=== PATIENT | male | born 1955 | race Caucasian/White ===

== ENCOUNTER → 2021-06-06 13:03 | Outpatient (BNVA) | payer OTHER, SELFPAY | PROVIDERS: PCP Hospitalist; Visit Provider Physician Assistant Medical | DX: S69.91XA Unspecified injury of right wrist, hand and finger(s), initial encounter (principal); X58.XXXA Exposure to other specified factors, initial encounter | CPT/HCPCS: 99203 ==

== ENCOUNTER → 2021-06-11 15:43 | Outpatient (BNVA) | payer OTHER, SELFPAY | PROVIDERS: PCP Nurse Practitioner Family; Visit Provider Internal Medicine | DX: S60.221A Contusion of right hand, initial encounter (principal); X58.XXXA Exposure to other specified factors, initial encounter | CPT/HCPCS: 99213 ==

== ENCOUNTER 2021-06-13 07:25 | Outpatient (RCR) | payer OTHER, SELFPAY ==
--- NOTE | 2021-06-13 08:22 | MHC.OT.OEV ---
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 It swelled up with pain, but returned to to normal. He re-injured it last week and was seen at urgent care and then [facility] X-ray (-) for acute fracture. 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 summer Working on renovating his rental home Living Situation, Family and/or Social Support: Lives w/ Current Level of Function and Occupation Self Care, Employment, Leisure: Difficulty w/ forceful registry np (pliers, nail-gun) Sleep: Driving: Now improved Vision: Balance: Pain Assessment Pain Score: 1 Pain Scale Used: Numeric (0 - 10) Pain Location and Description: Right D3, localized to DIP primarily 1/10 resting pain 3/10 after a day's work Aggravating Factors: Forceful gripping Alleviating Factors: [place], Tylenol, Ibuprophen Skin and Soft Tissue Assessment Skin and Soft Tissue: Comments: Nerve assessment Ulnar Nerve: Median Nerve: Radial Nerve: Comments: WNL Sensory Assessment Temperature: Light Touch: Proprioception: Vibration: Comments: WNL Edema Assessment Upper Extremity: Lower Extremity: Comments: Mild edema in right D3 Dexterity Assessment Dexterity: Comments: WNL Special Tests Comments: AROM(PROM) Strength Cervical Cervical Flexion: Cervical Extension: Cervical Lateral Flexion: Cervical Rotation: Comments: Shoulder Flexion: Extension: Abduction: Internal Rotation: External Rotation: Comments: WFL Flexion: Extension: Abduction: Internal Rotation: External Rotation: Comments: Elbow Flexion: Extension: Pronation: Supination: Comments: WFL Flexion: Extension: Pronation: Supination: Comments: Wrist Flexion: Extension: Ulnar Deviation: Radial Deviation: Comments: WFL Flexion: Extension: Ulnar Deviation: Radial Deviation: Comments: Thumb Thumb CMC Flexion: Thumb MCP Flexion: Thumb IP Flexion: Radial Abduction: Palmar Abduction: [place] (Kapandji 0-10): Comments: WFL Digits Index MCP: PIP: DIP: Long MCP: PIP: DIP: Ring MCP: PIP: DIP: Small MCP: PIP: DIP: Comments: Right D3 tip-palm, about 1 cm to DPC Gross Grasp: R 35lb L 70lb Lateral Pinch: Two-Point Pinch: Three-Jaw Ubaldo: Comments: Guarding right registry np Patient Education Primary Language: Italian Help Desk Support Required: No Current Knowledge: Understands information with skills for self-management Teaching Method: Demonstration Handouts Verbal Education Needs Identified on Evaluation: ADL's Disease Information Equipment Use Exercise Pain Safety How did patient/family demonstrate learning? Patient demonstrates Patient verbalizes Barriers to Learning: None Readiness for Learning: Accepting Who was educated? Patient Comments: Plan of Care Assessment: 65 yo male presents about three weeks after initial injury to right middle finger when using a vice clamp at work. He has had improvements in his swelling, range and pain, currently now with minimal limitations and has returned to full work duties. Assessment shows impaired gross grasp, and slightly decreased middle finger end range. He has been educated on home exercise program and given techniques for pain and edema management. I anticipate he will do well with self management techniques and will not need any further OT at this time. STG Duration: Short Term Goals: LTG Duration: Machine Loader Goals: Frequency and Duration: The patient will be seen Treatment Plan: D/C OT services Electronically Signed By: Jenna Dominguez OTR/[place] CHT Reviewed/agree with student documentation: Therapist: Please sign and return to therapist, Thank you for your referral.
--- NOTE | 2021-06-13 08:22 | MHC.OT.DC ---
[address] [phone] F: [phone] Occupational Therapy Discharge Note Provider: Diamond Diaz PA-C Diagnosis: Right D3 injury Date of Evaluation: 06/13/21 Date of Discharge: 06/13/21 Treatments to Date: 1 Discharge Status: Independent with HEP Insurance Declined Tx Discharge Summary: Shan was seen for initial OT evaluation and is doing quite well. He has been educated on techniques for self management of pain, edema, range and strength and will continue with a home program, no outpatient services needed at this time. Electronically Signed By: DANTE Arevalo/[place] CHT Reviewed/agree with student documentation: Therapist: Please Sign and return to therapist, thank you for your referral.
== END 2021-06-13 08:23 | disposition home or self-care (01) ==
LOC: HO.OT 07:25
PROVIDERS: PCP Nurse Practitioner Family; Visit Provider Physician Assistant Medical
DX: S69.91XD Unspecified injury of right wrist, hand and finger(s), subsequent encounter (principal); R60.0 Localized edema
CPT/HCPCS: 97110; 97165

== ENCOUNTER → 2021-06-28 07:55 | Outpatient (BNVA) | payer OTHER, SELFPAY | PROVIDERS: PCP Nurse Practitioner Family; Visit Provider Internal Medicine | DX: S60.031D Contusion of right middle finger without damage to nail, subsequent encounter (principal); X58.XXXD Exposure to other specified factors, subsequent encounter | CPT/HCPCS: 99213 ==

== ENCOUNTER 2024-11-03 09:33 | Inpatient (IN) | payer MEDICARE, SELFPAY ==
--- OUTSIDE RECORDS SUMMARY | 2021-06-05 16:24 | XMS_ITS | Encounter Summary ---
Author Organization [facility] Address [address] [address] Phone Care Team Providers Care Grey Percher Name Role Phone Katy Dumont MD Unavailable + Mayelin Kirkland NP Primary Care Provid er Encounter Details Date Type Department Care Team (Late st Contact Info) Description 06/05/2021 4:24 PM EDT Hospital Encounter [facility] [address] [place] [id number] Sulaiman France PA [address] [place] [phone] [email or web address] Social History Tobacco Use Types Packs/Day Years Used Date Smoking Tobacco: Every Day Smokeless Tobacco: Never Alcohol Use Standard Drinks/Week Comments Yes 5 (1 standard drink = 0.6 oz pur e alcohol) Education Answer Date Recorded Are you interested in more education? Not on bert e 06/19/2022 Are you concerned about learning? Not on file 06/19/2022 No 06/19/2022 No 06/19/2022 Digital Access Answer Date Recorded No 07/15/2022 No 07/15/2022 Reliable internet access at home? Not on file 07/15/2022 Device with a working camera? Not on file Intimate Partner Violence Answer Date R ecorded Are you denied basic needs s uch as food, clothing, or medical care? No 07/14/2022 In the past 12 months have y ou been in a relationship with a person who hurts, threatens, or tries to control you? No 07/14/2022 Are you denied basic needs s uch as food, clothing, or medical care? No 07/14/2022 In the past 12 months have y ou been in a relationship with a person who hurts, threatens, or tries to control you? No 07/14/2022 Sex and Gender Information Value Date Recorded Sex Assigned at Male 02/24/2023 9:32 AM EST Legal Sex Male 9:53 PM EDT Gender Identity Male 02/24/2023 9:32 AM EST Sexual Orientation Asexual 02/24/2023 9: 32 AM EST documented as of this encounter Functional Status * Calculated C-SSRS Risk Score (Lifetime/Recent) Answer Date of Assessment Author No Risk Indicated 07/14/2022 7:16 PM EDT Felicitas Flores RN * Thomas Suicide Severity Rating Scale (Screener/Recent Self-Report) Question Answer Date of Assessment Author 1. Wish to be (Past 1 Month) No 023 7:16 PM EDT Felicitas Flores RN 2. Non-Specific Active Suici zulema Thoughts (Past 1 Month) No 07/14/2022 7:16 PM EDT Hoa Flores RN 6. Suicidal Behavior (Lifetime) No 3 7:16 PM EDT Felicitas Flores RN documented as of this encounter Plan of Treatment Upcoming Encounters Date Type Department Care Team (Late st Contact Info) Description 06/28/2025 9:20 AM EDT Office Visit [facility] [address] [place] [address] [address]rd Floor, [address] [place] [address] Adolfo Matthews MD [address] [place] [address], [address] [place] [id number] [email or web address] documented as of this encounter Procedures Procedure Name Priority Date/Time Associated Diagnosis Comments XR FINGER 2 OR MORE VIEWS (RIGHT) Urgent/patient waiting 06/05/2021 4:30 PM EDT Swelling of right middle finger documented in this encounter Results * XR FINGER 2 OR MORE VIEWS (RIGHT) (06/05/2021 4:30 PM EDT) Anatomical Region Laterality Modality Hand Right Computed Radiogr aphy 06/05/2021 4:37 PM EDT Impressions 06/05/2021 5:04 PM EDT No fracture or dislocation. ATTESTATION: Primo Steiner as teaching physician, have reviewed the images for this case and if necessary edited the report originally created by Gerardo Siegel. Narrative 06/05/2021 5:04 PM EDT XR FINGER 2 OR MORE VIEWS (RIGHT) COMPARISON: None FINDINGS: No fracture. Normal alignment. Normal joint spaces. Mild soft tissue swelling along the palmar surface of the middle finger. Vascular calcifications. Procedure Note Primo Santana, DO - 06/05/2021 XR FINGER 2 OR MORE VIEWS (RIGHT) COMPARISON: None FINDINGS: No fracture. Normal alignment. Normal joint spaces. Mild soft tissueswelling along the palmar surface of the middle finger. Vascularcalcifications. IMPRESSION: No fracture or dislocation. ATTESTATION: Primo Steiner as teaching physician, have reviewed theimages for this case and if necessary edited the report originally createdby Gerardo Siegel. Sulaiman MURGUIA IMG XR UPPER EXTREMITY Tawanna l Result documented in this encounter Visit Diagnoses Not on filedocumented in this encounter Additional Health Concerns Infection Onset Date Last Indicated Resolved Time MRSA Comment:Infection Loaded by the Load Infection Utility 03/26/2014 03/26/2014 04/09/2022 1:[address] documented as of this encounter Care Teams Grey Percher Relationship Specialty Start Date End Date Mayelin Kirkland NP [address] [place] [phone] [email or web address] PCP - General Family Medicine 06/05/21 Katy Dumont MD [email or web address] Family Medicine 01/11/19 documented as of this encounter Additional Source Comments The information contained in this document represents components of the legal health record. It is not the complete legal health record.[facility]
[2024-11-03] VITALS (7 sets, daily range): BP systolic 134–160; BP diastolic 56–77; PULSE 58–76; RESP 15–18; TEMP 36.3–37.1; O2SAT 96–97; BMI 22.0; BMI 22.2
--- NOTE | ~2024-11-03 | XR_ITS ---
EXAMINATION: XR CHEST 1 VIEW CLINICAL INFORMATION: chest pressure COMPARISON: None available. TECHNIQUE: Frontal view of the chest was obtained. FINDINGS: Lungs: Small area of ill-defined opacity in the right lower lobe. Left lung appears clear. Pleura: No pneumothorax. Blunting of bilateral costophrenic angles may be due to trace bilateral pleural effusions, focal atelectasis or focal pleural thickening. Heart/Mediastinum: Normal cardiomediastinal silhouette. Bones: No acute findings. XR/XR chest 1V IMPRESSION: Small area of ill-defined opacity in the right lower lobe could represent early airspace disease in the appropriate clinical setting. Electronically signed by: Ron Coelho MD 11/03/2024 10:45 AM EDT
--- NOTE | 2024-11-03 09:35 | ECG_ITS ---
Test Reason : cp Blood Pressure : */* mmHG Vent. Rate : 74 BPM Atrial Rate : 74 BPM P-R Int : 132 ms QRS Dur : 90 ms QT Int : 366 ms P-R-T Axes : 71 33 46 degrees QTcB Int : 406 ms Sinus rhythm with Premature atrial complexes Minimal voltage criteria for LVH, may be normal variant ( Sokolow-Blakely ) Septal infarct , age undetermined Abnormal ECG No previous ECGs available Referred By: Generic ED Physician Electronically Signed By: PARESH TURNER MD
[2024-11-03 10:03] LABS: MANUAL DIFF FLAG NO
[2024-11-03 10:06] LABS: Hematocrit 39.8 % (42.0-52.0); Hemoglobin 14.0 g/dl (14.0-18.0); Imm Gran Abs Auto 0.02 X10*3/uL (0.00-0.03); Imm Gran Pct Auto 0.3 % (0.0-0.4); Lymphocytes Absolute Auto 1.3 X10*3/uL (1.2-4.9); Mean Corpuscular HGB Conc 35.2 g/dl (31.0-36.0); Mean Corpuscular Hemoglobin 32.8 pg (27.0-33.0); Mean Corpuscular Volume 93.2 fL (80.0-98.0); NRBC Abs Auto 0.000 X10*3/uL (0.0-0.012); NRBC Pct Auto 0.0 /100WBC (0.0-0.2); Platelet Count 255 X10*3/uL (160-400); Red Blood Count 4.27 X10*6/uL (4.60-5.80); White Blood Count 6.3 X10*3/uL (4.8-10.8)
[2024-11-03 10:22] LABS: Alanine Aminotransferase 24 U/L (0-40); Albumin Level 4.2 g/dL (3.5-5.0); Alkaline Phosphatase 73 U/L (39-117); Anion Gap 13 (12-20); Aspartate Amino Transferase 27 U/L (5-37); Blood Urea Nitrogen 20 mg/dL (9-16); Calcium 9.4 mg/dL (8.4-10.2); Carbon Dioxide 27 mmol/L (22-29); Chloride 103 mmol/L (96-108); Creatinine Clr Calc Pharmacy 53.0; Estimated Glomerular Filt Rate 58; Potassium 4.6 mmol/L (3.3-5.1); Sodium 138 mmol/L (135-145); Total Protein 7.1 g/dL (6.5-8.0)
[2024-11-03 10:29] LABS: Troponin-I High Sensitivity 65.2 ng/L (<3.5-35.0)
--- NOTE | 2024-11-03 11:55 | ECG_ITS ---
Test Reason : CHEST PAIN Blood Pressure : */* mmHG Vent. Rate : 63 BPM Atrial Rate : 63 BPM P-R Int : 148 ms QRS Dur : 86 ms QT Int : 396 ms P-R-T Axes : 34 30 37 degrees QTcB Int : 405 ms Normal sinus rhythm Minimal voltage criteria for LVH, may be normal variant ( Sokolow-Blakely ) Borderline ECG When compared with ECG of 03-Nov-2024 09:53, Premature atrial complexes are no longer Present Referred By: Ion Hoff Electronically Signed By: PARESH TURNER MD
--- NOTE | 2024-11-03 11:58 | ED.CHESTPAIN ---
HPI - Chest Pain General Chief Complaint: Chest Pain Stated Complaint: chest pressure Time Seen by Provider: 11/03/24 11:47 Source: patient Mode of arrival: ambulatory Limitations: no limitations History of Present Illness HPI narrative: This is 69 years old man with a history of CAD he had right coronary stent and circumflex stent on aspirin and Plavix presented to the ED with a chief complaint of chest pain the chest pain he has been ongoing for a couple of days no radiation of the pain pain is now constant complaint: chest pain Pertinent past history: coronary artery disease Onset (ago): day(s) (2) Timing of current episode: constant Onset: during rest Pain location: substernal Pain radiation: none Severity: mild Quality: aching Relieving factors: nothing Exacerbating factors: nothing Risk Factors Coronary artery disease risk factors: diabetes Thoracic aortic dissection risk factors: none Related Data Allergies Allergy/AdvReac Type Severity Reaction Status Date / Time codeine Allergy Unknown Unknown Verified 11/03/24 09:46 Review of Systems Constitutional: Constitutional: Reports no additional constitutional complaints Cardiovascular: Cardiovascular: Reports as per [facility] Past Medical History Attestation statement: The following information was validated with the patient. Source: unable to obtain Social History Social History Advance Directives: No Advance Directives Information Provided: Yes Physical Exam Exam: Exam: Patient looks well no distress comfortable in the stretcher Vital Signs: Vital Signs: Last Vital Signs Pulse 62 11/03/24 12:00 Resp 16 11/03/24 12:00 BP 141/68 H 11/03/24 12:00 Pulse Ox 97 11/03/24 12:00 O2 Del Method Room Air 11/03/24 12:00 BMI result Body Mass Index 22.2 Const: General: cooperative Orientation/consciousness: patient oriented x3 HEENT: Head: Yes normal to inspection General nose exam: Normal external nose present Face and sinus: Yes normal facial exam Mouth: Normal oral and palatal mucosa present Neck: Neck: Yes normal visual inspection Resp: Effort & Inspection: normal respiratory effort Auscultation: clear to auscultation bilaterally Cardio: Jugular venous distension: no JVD Rate: regular rate Rhythm: regular rhythm GI: Inspection: Yes normal to inspection Skin: General skin exam: no rashes or lesions noted Neuro: General: patient oriented x3 Extrem: General: Yes normal to inspection Course Reevaluation(s) Reevaluation #1: I have discussed the case with the ruling technician we will admit IV heparin Time: 14:33 Medications Administered Generic Name Dose Route Start Last Admin Trade Name Freq PRN Reason Stop Dose Admin Heparin Sodium/Sodium Chloride 25,000 unit in 250 mls @ 0 mls/hr 11/03/24 13:15 11/03/24 13:15 Heparin Sodium,Porcine/1/2ns IVCONT 12 units/kg/hr .Q0M LORNE 7.93 mls/hr Protocol Administration Per Protocol Nitroglycerin 0.4 mg 11/03/24 12:19 11/03/24 12:31 Nitroglycerin 0.4 Mg Tab.Subl SUBLINGUAL 0.4 mg Q5MX3 PRN Administration Chest Pain Discontinued Medications Generic Name Dose Route Start Last Admin Trade Name Freq PRN Reason Stop Dose Admin Heparin Sodium (Porcine) 3,900 unit 11/03/24 12:25 11/03/24 13:10 Heparin Sodium,Porcine 5,000 Unit/Ml Vial 60 unit/kg (3900 unit) 11/03/24 12:26 3,900 unit IVPUSH Administration ONCE ONE Medical Decision Making Medical Decision Making [facility] Narrative: Patient presented with chest pain history of CAD we will obtain EKG and high sensitive troponin Chest pain-free after nitro, IV heparin started spoke with cardiology and hospitalist Differential Diagnosis Differential Diagnoses: The differential diagnosis associated with the presentation includes ACS/pericarditis/atypical chest pain Admission/Observation Consideration of admission/observation: Escalation of care including admission/observation considered Consult Healthcare Provider Management of the patient was discussed with: [employer] Manual [employer] Therapist Dr Ley Lab Data [facility] Lab Attestation statement: I reviewed the patient's lab results. 11/03/24 09:58 11/03/24 09:58 Labs: Lab Results 11/03/24 11/03/24 11/03/24 Range/Units 09:58 13:17 13:18 WBC 6.3 (4.8-10.8) X10*3/uL RBC 4.27 L (4.60-5.80) X10*6/uL Hgb 14.0 (14.0-18.0) g/dl Hct 39.8 L (42.0-52.0) % MCV 93.2 (80.0-98.0) fL MCH 32.8 (27.0-33.0) pg MCHC 35.2 (31.0-36.0) g/dl RDW 12.7 (11.0-16.0) % Plt Count 255 (160-400) X10*3/uL MPV 9.3 L (9.4-12.4) fL Immature Gran % (Auto) 0.3 (0.0-0.4) % Neut % (Auto) 64.8 (45-73) % Lymph % (Auto) 20.3 (20-40) % [place] % (Auto) 8.1 (2-11) % Eos % (Auto) 5.1 H (0-4) % Baso % (Auto) 1.4 (0-2) % Lymph # (Auto) 1.3 (1.2-4.9) X10*3/uL [place] # (Auto) 0.5 (0.1-1.2) X10*3/uL Eos # (Auto) 0.3 (0.0-0.4) X10*3/uL Baso # (Auto) 0.1 (0.0-0.2) X10*3/uL Abs Immat Gran (auto) 0.02 (0.00-0.03) X10*3/uL Absolute Neuts (auto) 4.1 (2.0-8.3) x10*3/uL Absolute Nucleated RBC 0.000 (0.0-0.012) X10*3/uL Nucleated RBC % (auto) 0.0 (0.0-0.2) /100WBC PT 9.9 L (10.9-12.4) SEC INR 0.9 (0.9-1.1) aPTT Heparin Protocol 31.1 L (53-77.9) SEC Sodium 138 (135-145) mmol/L Potassium 4.6 (3.3-5.1) mmol/L Chloride 103 (96-108) mmol/L Carbon Dioxide 27 (22-29) mmol/L Anion Gap 13 (12-20) BUN 20 H (9-16) mg/dL Creatinine 1.24 (0.5-1.4) mg/dL Estim Creat Clear Calc 53.0 Estimated GFR 58 Random Glucose 208 H (60-115) mg/dL Calcium 9.4 (8.4-10.2) mg/dL Total Bilirubin 0.4 (0.0-1.0) mg/dL AST 27 (5-37) U/L ALT 24 (0-40) U/L Alkaline Phosphatase 73 (39-117) U/L Troponin I High Sens 65.2 H 60.4 H (<3.5-35.0) ng/L Total Protein 7.1 (6.5-8.0) g/dL Albumin 4.2 (3.5-5.0) g/dL Independent Interpretation I performed an independent interpretation of an: EKG Interpretation: Electrocardiogram reviewed interpreted by me as normal sinus rhythm borderline ST elevation in the lateral leads without reciprocal changes Radiology Impression Discussion of test interpretation with radiology: I have reviewed the radiologist's reading. Chronic Conditions Patient?s care impacted by: Diabetes Critical Care Time Critical Care Time Critical Care Time: Yes Total Critical Care Time: 60 Attestation: iv heparin Discharge Plan Discharge Clinical Impression: ACS (acute coronary syndrome) Chest pain Qualifiers: Chest pain type: unspecified Qualified Code(s): R07.9 - Chest pain, unspecified Patient Disposition: Admitted As Inpatient
[2024-11-03] MEDS: Heparin Sodium,Porcine/1/2NS 25,000 UNIT/250 ML IV.SOLN 7.93 UNIT IVCONT (13:15)
[2024-11-03 13:39] LABS: INTERNATIONAL NORM RATIO 0.9 (0.9-1.1); Prothrombin Time 9.9 SEC (10.9-12.4)
[2024-11-03 13:41] LABS: PTT Heparin Drip 31.1 SEC (53-77.9)
[2024-11-03 13:46] LABS: Troponin-I High Sensitivity 60.4 ng/L (<3.5-35.0)
--- NOTE | 2024-11-03 14:29 | PM.IMHP ---
History of Present Illness Date of Service: 11/03/24 Attending physician on admission: Artie Durham Chief Complaint: chest pain This is a 61-year-old male with history of coronary artery disease, type 1 diabetes, peripheral vascular disease who presents to the emergency department with chest pain. Patient reports central chest pressure intermittent over the past 10 days. Over the past 3 days has become more constant in nature. There is no radiation. There is no associated symptoms specifically no shortness of breath, dizziness, diaphoresis, nausea or vomiting. The pain is not worse with activity. He received a dose of nitro in the emergency department which possibly reduce the pain a little bit according to the patient. ekg was non-ischemic. troponin was checked and initially was 65, on repeat 60. Given underlying coronary artery disease, concern for unstable angina, was started on heparin drip and will be admitted to the hospital for further management. Review of Systems Review of Systems: Yes all other systems are reviewed and are negative Constitutional: Constitutional: Denies chills and Denies fever(s) Cardiovascular: Cardiovascular: Reports chest pain, Denies palpitations and Denies dyspnea Respiratory: Respiratory: Denies cough and Denies dyspnea Gastrointestinal: Gastrointestinal: Denies abdominal pain and Denies vomiting Endocrine: Endocrine: Denies palpitations [facility] Medical History Tobacco dependence Hypothyroid Type 1 diabetes PVD (peripheral vascular disease) CAD (coronary artery disease) Functional capacity: independent ambulation Social History (Updated 11/03/24 @ 14:36 by BLADE Arguelles) Patient Tobacco Use Status: Current someday Tobacco user Tobacco use type: Cigarette Advance Directives: No Advance Directives Information Provided: Yes Meds Allergies Allergy/AdvReac Type Severity Reaction Status Date / Time codeine Allergy Unknown Unknown Verified 11/03/24 09:46 Active Medications: Current Medications Heparin Sodium (Porcine) (Heparin Sodium,Porcine 5,000 Unit/Ml Vial) 2,600 unit 40 unit/kg (2600 unit) IVPUSH PROTOCOL BOLUS PRN; Protocol PRN Reason: 40 unit/kg - Heparin Protocol Heparin Sodium (Porcine) (Heparin Sodium,Porcine 5,000 Unit/Ml Vial) 5,300 unit 80 unit/kg (5300 unit) IVPUSH PROTOCOL BOLUS PRN; Protocol PRN Reason: 80 unit/kg - Heparin Protocol Heparin Sodium/Sodium Chloride (Heparin Sodium,Porcine/1/2ns) 25,000 unit in 250 mls @ 0 mls/hr IVCONT .Q0M LORNE; Protocol Last Admin: 11/03/24 13:15 Dose: 12 units/kg/hr, 7.93 mls/hr Nitroglycerin (Nitroglycerin 0.4 Mg Tab.Subl) 0.4 mg SUBLINGUAL Q5MX3 PRN PRN Reason: Chest Pain Last Admin: 11/03/24 12:31 Dose: 0.4 mg Home Medications ?Medication ?Instructions ?Recorded ?Confirmed ?Last Taken ?Type amlodipine 10 mg tablet 10 mg PO DAILY 11/03/24 11/03/24 11/03/24 History atorvastatin 80 mg tablet 80 mg PO DAILY 11/03/24 11/03/24 11/03/24 History blood-glucose transmitter (Dexcom 11/03/24 11/03/24 Unknown History G6 Transmitter device) clopidogrel 75 mg tablet 75 mg PO DAILY 11/03/24 11/03/24 11/03/24 History gabapentin 300 mg capsule 300 mg PO BID 11/03/24 11/03/24 11/03/24 History gabapentin 300 mg capsule 300 mg PO DAILY PRN Pain 11/03/24 11/03/24 Unknown History insulin degludec 100 unit/mL (3 See Rx Instructions .Route 11/03/24 11/03/24 11/03/24 History mL) subcutaneous pen (Tresiba .COMPLEX PRN when pump fails FlexTouch U-100 insulin) insulin lispro 100 unit/mL 0 - 67 unit subcut DAILY 11/03/24 11/03/24 11/03/24 History subcutaneous solution (Humalog U-100 Insulin) insulin pump cart,auto,BT,G6/7 11/03/24 11/03/24 Unknown History (Omnipod 5 G6-G7 Pods (Gen 5) subcutaneous cartridge) levothyroxine 125 mcg tablet 125 mcg PO BEDTIME 11/03/24 11/03/24 11/03/24 History (Synthroid) Physical Exam Vital Signs and Narrative: Vital Signs: Last Vital Signs Pulse 62 11/03/24 12:00 Resp 16 11/03/24 12:00 BP 141/68 H 11/03/24 12:00 Pulse Ox 97 11/03/24 12:00 O2 Del Method Room Air 11/03/24 12:00 BMI result Body Mass Index 22.2 Const: General: cooperative, comfortable, no acute distress, alert and awake Nutritional Appearance: average body habitus Orientation/consciousness: patient oriented x3 Resp: Effort & Inspection: normal respiratory effort, able to speak in complete sentences, no respiratory distress and no use of accessory muscles Cardio: Rate: regular rate GI: Inspection: No distended Palpation (GI): Soft to palpation and nontender Neuro: General: patient oriented x3, moves all extremities and CN's II-XI intact bilaterally Results Labs 11/03/24 09:58 11/03/24 09:58 Labs: Laboratory Results - last 24 hr 11/03/24 11/03/24 09:58 13:17 MCV 93.2 MCH 32.8 MCHC 35.2 RDW 12.7 Plt Count 255 MPV 9.3 L Immature Gran % (Auto) 0.3 Neut % (Auto) 64.8 Lymph % (Auto) 20.3 [place] % (Auto) 8.1 Eos % (Auto) 5.1 H Baso % (Auto) 1.4 Lymph # (Auto) 1.3 [place] # (Auto) 0.5 Eos # (Auto) 0.3 Baso # (Auto) 0.1 Abs Immat Gran (auto) 0.02 Absolute Neuts (auto) 4.1 Absolute Nucleated RBC 0.000 Nucleated RBC % (auto) 0.0 PT 9.9 L INR 0.9 aPTT Heparin Protocol 31.1 L Anion Gap 13 Estim Creat Clear Calc 53.0 Estimated GFR 58 Random Glucose 208 H Calcium 9.4 Total Bilirubin 0.4 AST 27 ALT 24 Alkaline Phosphatase 73 Total Protein 7.1 Albumin 4.2 Imaging Radiologist's Impressions: Impressions Chest X-Ray 11/03/24 10:35 IMPRESSION: Small area of ill-defined opacity in the right lower lobe could represent early airspace disease in the appropriate clinical setting. Electronically signed by: Ron Coelho MD 11/03/2024 10:45 AM EDT Assessment and Plan (1) Chest pain: Qualifiers: Chest pain type: unspecified Qualified Code(s): R07.9 - Chest pain, unspecified Status: Acute Plan This is a 69-year-old male with history of CAD s/p stent x2, PVD s/p stent of right common iliac artery, T1DM, hypothyroidism, tobacco dependence who presents to the emergency department with chest pain Chest pain/unstable angina trops flat. chest pain improved continue Heparin drip continue plavix (took dose this am), statin; not on BB at this time Echocardiogram cardiology consult T1DM uses omnipod insulin pump with dexcom CGM - will continue to use insulin pump follow POCs HTN continue norvasc Hypothyroidism Continue Synthroid dvt ppx - heparin drip patient will likely require two midnight stay in the hospital for management of unstable angina requiring specialist evaluation and IV heparin Quality Stroke Does the patient have a stroke diagnosis?: No VTE Prior VTE?: No VTE Risk Level:: Medical - moderate - high VTE Device Contraindication: Treatment Not Indicated VTE Drug Contraindication: N/A - Med Ordered
--- NOTE | 2024-11-03 14:31 | CA_ITS ---
Transthoracic Echocardiogram Patient (Last, First, Middle): Shan Drake J Gender: Male Date of : 1955 Age: 69 Procedure Date: 11/03/2024 Procedure Type: Transthoracic Echocardiogram Location: ER Height: 172.72 cm Weight: 65.77 kg BSA: 1.78 m2 Heart Rate: bpm BP: 135 / 56 mmHg Taper [employer]ed Circuit Layout: TO/RC Referring MD: Kaleigh MURGUIA Boring Machine Operator Horizontal: Haja Alex MD Symptoms: chest pain Study Quality: Adequate ECG Rhythm: Sinus Conclusions: - 1. Normal LV ejection fraction of 60 65% with impaired relaxation filling pattern with suggestion of basal inferior and inferoseptal wall motion abnormality 2. Normal cardiac valvular Dopplers 3. Normal RV systolic pressure 4. No gross pericardial effusion Findings Left Ventricle Normal left ventricular size, thickness, and systolic function. The visually estimated ejection fraction is between 60-65%. Spectral Doppler is indicative of an impaired relaxation filling pattern. E/E prime ratio is between 8 and 15 consistent with indeterminate filling pressures. Wall Motion Rest Echo Findings The basal inferior and basal inferoseptal segments are hypokinetic. All other scored wall segments showed normal motion. Right Ventricle Normal right ventricular cavity size and systolic function. Atria Both atria are normal in size. There is no evidence of interatrial shunt. Aortic Valve There is no aortic valve stenosis. There is no aortic valve regurgitation. Mitral Valve There is mild anterior and posterior mitral leaflet thickening. There is trace mitral valve regurgitation. There is no mitral valve stenosis. Pulmonic Valve The pulmonic valve was not well visualized. Tricuspid Valve Likely normal tricuspid valve structure and function. There is trace tricuspid valve regurgitation. The right ventricular systolic pressure is normal. The right ventricular systolic pressure is 15 mmHg. Normal right atrial pressure. There is no evidence of pulmonary hypertension. Great Vessels The aorta was not well visualized. The pulmonary artery was not well visualized. Venous The inferior vena cava is normal in size and collapses greater than 50% with inspiration. Pericardium/Pleural There is no evidence of pericardial effusion. Prior Study Comparison No prior study available for comparison. Measurements 2D Linear Measurements IVSd: 0.92 0.6-0.9/0.6-1.0 cm LVIDd: 4.28 3.9-5.3/4.2-5.9 cm LVIDd Index: 2.40 2.4-3.2/2.2-3.1 cm/m2 LVIDs: 2.90 2.0-3.6 cm LVPWd: 0.84 0.7-1.1 cm Ao Root: 3.20 2.1-3.5 cm LA Diam: 2.80 2.7-3.8/3.0-4.0 cm LAIDs Index: 1.57 1.5-2.3 cm/m2 LV Mass: 148.42 67-162/88-224 g LV Mass Index: 83.38 43-95/49-115 g/m2 LVOT Diam: 2.10 3.0+(-)1.3 cm 2D Systolic Function EF 4C: 61.80 >55% EF 2C: 62.50 >55% EF BiP: 63.10 >55% Mitral Valve MV Pk E: 0.66 MV PK A: 0.79 MV Decel Time: 312.00 E/A: 0.80 E'Lateral: 9.90 E'Medial: 5.98 E/E' Med: 11.00 E/E' Lat: 6.70 PHT: 92.00 MVA PHT: 2.39 Decel [place]: 2.11 Aortic Valve AoV Pk Pablo: 1.22 AoV Mn Pablo: 0.86 AoV VTI: 0.26 AoV Pk Grad: 6.00 Aov Mn Grad: 3.00 CHAD Cont.VTI: 3.18 LVOT LVOT Pk Pablo: 1.12 LVOT Mn Pablo: 0.70 LVOT VTI: 0.24 LVOT Pk Grad: 5.00 LVOT Mn Grad: 2.00 LVOT Diam: 2.10 LVOT Area: 3.46 Diastolic Function MV Pk E: 0.66 MV Pk A: 0.79 E/A: 0.80 E'Medial: 5.98 E/E' Med: 11.00 E' Laterial: 9.90 E/E' Lat: 6.70 Right Ventricle TAPSE (mm): 24.60 TVS' Pablo: 11.60 Tricuspid Valve TR Pk Pablo: 1.70 TR Pk Grad: 12.00 RA Press: 3.00 RVSP: 15.00 Great Vessels Aorta Ao Root-2D: 3.20 2.0-3.7 cm Sinus of Valsalva: 3.20 2.0-3.5 cm Pulmonary Valve PV Pk Pablo: 0.88 Peak PV Grad: 3.00 Updated in Other Vendor System with Status of Final Haja Alex MD electronically signed on 11/03/2024 4:13:29 PM with status of Final
--- NOTE | 2024-11-03 16:51 | PHA.MEDREC ---
Addendum entered by Nathaniel James PharmD 11/03/24 16:55: reviewed Original Note: Pharmacy Consult ? Medication Reconciliation Pharmacy has completed the medication reconciliation. Pharmacy has completed the medication reconciliation. Patient was able to name all of his medications. Patient states he is not using Mometasone 0.1% oint. Patient confirmed he has a Omnipod 5 Gen DX pod insulin pump and uses Humalog U-100 up to 67 units daily and when pup fails patient is to use Tresiba 15 units daily, Gabapentin 300 mg BID and will take 1 as needed, Synthroid 125 mcg daily at night time.
--- OUTSIDE RECORDS SUMMARY | 2024-11-03 17:04 | XMS_ITS | Encounter Summary ---
Author Organization [facility] Address [address] [address] Phone Care Team Providers Care Harness Maker Name Role Phone Katy Dumont MD Unavailable + Mayelin Kirkland NP Primary Care Provid er Encounter Details Date Type Department Care Team (Late st Contact Info) Description 09/10/2022 Procedure Pass [facility], [address] [address] Social History Tobacco Use Types Packs/Day Years [...] AM EST documented as of this encounter Plan of Treatment Upcoming Encounters Date Type Department Care Team (Late st Contact Info) Description 06/28/2025 9:20 AM EDT Office Visit [facility] [address] [place] [address] 3rd Floor, [address] [place] [address] Adolfo Matthews MD [address] [place] [address], [address] [address] [email or web address] documented as of this encounter Visit Diagnoses Not on filedocumented in this encounter Care Teams Harness Maker Relationship Specialty Start Date End Date Mayelin Kirkland NP [address] [place] [phone] [email or web address] PCP - General Family Medicine 06/05/21 Katy Dumont MD [email or web address] Family Medicine 01/11/19 documented as of this encounter Additional Source Comments The information contained in this document represents components of the legal health record. It is not the complete legal health record.[facility]
--- OUTSIDE RECORDS SUMMARY | 2024-11-03 17:04 | XMS_ITS | Patient Health Record ---
Author Organization [facility] Address [address] [place] [address] Care Team Providers Care Automatic Washer Mechanic Name Role Phone Mallory(inactive) Bonilla ROGERS Primary Care Provider U Fredi Agnel Unavailable [phone] Allergies Allergen (clinical drug ingredient) Drug/Non Drug Allergy documented on EMR Reaction Allergy Type Onset Date Status Codeine Phosphate Unknown Drug Allergy Active Reason For Referral No Information Medications Medication SIG (Take, Route, Fr equency, Duration) Notes Start Date End Date Status Aspir-81 Active amLODIPine Besylate Active Vitamin B12 Active Vitamin D Active Lyrica 100 MG 1 capsule Orally Thr ee times a day Active Clopidogrel Bisulfate Active Atorvastatin Calcium Active Problems Problem Type SNOMED Code ICD Code Onset Dates Problem Status W/U Status Risk Notes Problem 487786050 Encounter for screening for malignant neoplasm of colon (Z12.11) Active confirmed Problem 030394111 History of adenomatous polyp of colon (Z86.010) Active confirmed Problem 184014967 Anemia in other chronic diseases classified elsewhere (D63.8) Active confirmed Problem Screening for malignant neoplasm of rectum (078008814) Encounter for screening for malignant neoplasm of rectum (Z12.12) Active confirmed Problem 995115958 Elevated liver enzymes (R74.8) Active confirmed Problem 421319293 Fatty liver (K76.0) Active confirmed Plan Of Treatment Pending Test Test Name Order Date LIVER PROFILE 12/07/2014 LIVER PROFILE 01/02/2015 IRON + IBC (FE) 12/07/2014 FERRITIN 12/07/2014 VITAMIN B12 AND FOLATE 01/02/2015 CBC w DIFF 12/07/2014 PROTHROMBIN TIME (PT, INR) 12/07/2014 HEPATITIS A,B,C PROFILE 12/07/2014 [id number] (A1A) 12/07/2014 CELIAC PANEL #10 01/27/2014 MITOCHONDRIAL AB 12/07/2014 SMOOTH MUSCLE ANTIBODIES 12/07/2014 FLUOR. ANTINUCLEAR AB SCREEN (GIRISH) 11/23 Future Test Test Name Order Date COLONOSCOPY 11/14/2015 Insurance Providers Payer Name Payer Address Payer Phone Subscriber Number Group Number Insured Name Patient Relationship to Insured Coverage Start Date Coverage End Date [employer] [address] [place] [phone] [id number] HANNAH DE LUNA Self - patient is the insured Medical (General) History Medical History History ICD Code Screening colonoscopy in 10/2008 with rem oval of 1 small tubular adenoma. EGD in 10/2008 with minimal gastritis--bx neg for H.pylori IDDM-sees Dr. Johnson-has an Insulin pum p Denies PR,CVA,Lung disease,renal disease Mild elevation of LFT's--fat ty liver--negative w/u in 2014 including viral serologies, iron studies, autoimmune studies, alpha-1 antitrypsin level, and CAT scan and ultrasound of the liver CAD--stent placed in 02/2014--sees cardio logists [facility] Hyperlipidemia Neg. celiac disease serology in 2014 Surgical History Surgery Date(Month/Year) Vasectomy
--- OUTSIDE RECORDS SUMMARY | 2024-11-03 17:04 | XMS_ITS | Encounter Summary ---
Author Organization [facility] Address [address] [address] Phone Care Team Providers Care Poly Packer And Heat Sealer Name Role Phone Katy Dumont MD Unavailable + Mayelin Kirkland NP Primary Care Provid er Reason for Visit * Reason Comments Medication Refill Encounter Details Date Type Department Care Team (Late st Contact Info) Description 10/16/2022 Refill [facility] Rad Onc [address] [place] [phone] Fortino Matthew MD [address] [place] [phone] [email or web address] Medication Refill Social History Tobacco Use Types Packs/Day Years [...] Description 06/28/2025 9:20 AM EDT Office Visit [facility] [address] [place] [address] [address]rd [facility], [address] [place] [address] Adolfo Matthews MD [address] [place] [phone] [email or web address] documented as of this encounter Visit Diagnoses Not on filedocumented in this encounter Care Teams Poly Packer And Heat Sealer Relationship Specialty Start Date End Date Mayelin Kirkalnd NP [address] [place] [phone] [email or web address] PCP - General Family Medicine 06/05/21 Katy Dumont MD Family Medicine 01/11/19 documented as of this encounter Additional Source Comments The information contained in this document represents components of the legal health record. It is not the complete legal health record.[facility]
--- OUTSIDE RECORDS SUMMARY | 2024-11-03 17:04 | XMS_ITS | Encounter Summary ---
Author Organization [facility] Address [address] [address] Phone Care Team Providers Care Gunstock Spray Unit Feeder Name Role Phone Katy Dumont MD Unavailable + Mayelin Kirkland NP Primary Care Provid er Encounter Details Date Type Department Care Team (Late st Contact Info) Description 09/25/2022 Procedure Pass [facility] [address] [place] [address] Social History Tobacco Use Types Packs/Day Years [...] Description 06/28/2025 9:20 AM EDT Office Visit [facility] [address] [place] [address] [address]rd Floor, [address] [place] [address] Adolfo Matthews MD [address] [place] [address], [address] [address] [email or web address] documented as of this encounter Visit Diagnoses Not on filedocumented in this encounter Care Teams Gunstock Spray Unit Feeder Relationship Specialty Start Date End Date Mayelin Kirkland NP [address] [place] [phone] [email or web address] PCP - General Family Medicine 06/05/21 Katy Dumont MD Family Medicine 01/11/19 documented as of this encounter Additional Source Comments The information contained in this document represents components of the legal health record. It is not the complete legal health record.[facility]
--- OUTSIDE RECORDS SUMMARY | 2024-11-03 17:04 | XMS_ITS | Encounter Summary ---
Author Organization [facility] Address [address] [address] Phone Care Team Providers Care Rental Counter Clerk Name Role Phone Katy Dumont MD Unavailable + Mayelin Kirkland NP Primary Care Provid er Encounter Details Date Type Department Care Team (Late st Contact Info) Description 09/25/2022 Procedure Pass [facility] [address] [place] [address] Social History Tobacco Use Types Packs/Day Years [...] Description 06/28/2025 9:20 AM EDT Office Visit [facility] [address] [place] [address] [address]rd Floor, [address] [place] [address] Adolfo Matthews MD [address] [place] [address], [address] [address] [email or web address] documented as of this encounter Visit Diagnoses Not on filedocumented in this encounter Care Teams Rental Counter Clerk Relationship Specialty Start Date End Date Mayelin Kirkland NP [address] [place] [phone] [email or web address] PCP - General Family Medicine 06/05/21 Katy Dumont MD Family Medicine 01/11/19 documented as of this encounter Additional Source Comments The information contained in this document represents components of the legal health record. It is not the complete legal health record.[facility]
--- OUTSIDE RECORDS SUMMARY | 2024-11-03 17:04 | XMS_ITS | Encounter Summary ---
Author Organization [facility] Address [address] [address] Phone Care Team Providers Care Java Web Services Developer Name Role Phone Katy Dumont MD Unavailable + Mayelin Kirkland NP Primary Care Provid er Encounter Details Date Type Department Care Team (Late st Contact Info) Description 06/28/2024 Procedure Pass [facility] [address] [place] [address] Social History Tobacco Use Types Packs/Day Years [...] Description 06/28/2025 9:20 AM EDT Office Visit [facility] [address] [place] [address] 3rd Floor, [address] [place] [address] Adolfo Matthews MD [address] [place] [address], [address] [address] [email or web address] documented as of this encounter Visit Diagnoses Not on filedocumented in this encounter Care Teams Java Web Services Developer Relationship Specialty Start Date End Date Mayelin Kirkland NP [address] [place] [phone] [email or web address] PCP - General Family Medicine 06/05/21 Katy Dumont MD Family Medicine 01/11/19 documented as of this encounter Additional Source Comments The information contained in this document represents components of the legal health record. It is not the complete legal health record.[facility]
--- OUTSIDE RECORDS SUMMARY | 2024-11-03 17:05 | XMS_ITS | Clinical Summary ---
Author Organization [facility] Address [address] [address] Phone Care Team Providers Care Certification Engineer Name Role Phone Katy Dumont MD Unavailable + Mayelin Kirkland NP Primary Care Provid er Allergies Active Allergy Reactions Criticality Noted Date Comments Lisinopril Hypotension 01/11/2019 Pregabalin 01/11/2019 Cant take while on gabapentin. Vision issues Medications amLODIPine (NORVASC) 10 MG tablet Take 10 mg by mouth daily. Active atorvastatin (LIPITOR) 80 MG tablet Take 80 mg by mouth daily. Active gabapentin (NEURONTIN) 300 MG capsule Take 300 mg by mouth 3 (three) times a day. Active oxyCODONE 5 MG immediate release tablet Take 5 mg by mouth every 4 (four) hours as needed for moderate pain or 4-6 (on a general 0-10 scale). Taking prn, not daily Active cholecalcifero l (VITAMIN D3) 4,000 unit tablet Take 5,000 Units by mouth daily. Active cyanocobalamin , vitamin B-12, 250 MCG tablet Take 250 mcg by mouth daily. Active acetaminophen (TYLENOL) 500 MG tabletIndicati ons:arthritic pain Take 1,500 mg by mouth 2 (two) times a day. Indications: pain associated with arthritis Active tamsulosin (FLOMAX) 0.4 mg Cap Take 1 capsule (0.4 mg total) by mouth daily. Take 1/2 hour after supper 30 capsule 5 3 Active Additional Information Patient not taking.Reported on 06/28/2024 levothyroxine (SYNTHROID, LEVOTHROID) 125 MCG tablet Take 125 mcg by mouth every morning. 3 Active OMNIPOD 5 G6 PODS, GEN 5, Crtg APPLY TO SKIN EVERY 2 DAYS 3 Active pantoprazole (PROTONIX) 40 MG tablet 40 MG BY MOUTH DAILY,X60 DAYS 3 Active olmesartan (BENICAR) 20 mg tablet 3 Active levoFLOXacin (LEVAQUIN) 750 MG tablet TAKE 1 TABLET BY MOUTH EVERY 24 HOURS FOR 10 DAYS 3 Active HUMALOG U-100 INSULIN 100 unit/mL injection vial INJECT UP TO 67 UNITS SUBCUTANEOUSLY DAILY VIA INSULIN PUMP DIRECTED 3 Active HYDROmorphone (DILAUDID) 2 MG tablet TAKE 1 TABLET BY MOUTH EVERY 6 HOURS,X15 DAYS, NEEDED FOR PAIN 3 Active clopidogrel (PLAVIX) 75 mg tablet Take 75 mg by mouth. 3 Active aspirin 81 MG EC tablet Take 81 mg by mouth daily. Active Active Problems Problem Noted Date Diagnosed Date Dyspnea on exertion 06/28/2024 Assessment & Plan (06/28/2024 9:53 AM EDT): Patient reports continued dyspnea on exertion. He states that it can happen when he is getting dressed at work with minimal activity. He states that it has been stable over the past couple years. Will order a repeat echo and stress test to evaluate for his coronary artery disease status. Dizziness and giddiness 09/28/2022 Assessment & Plan (09/28/2022 7:15 AM EDT): - Orthostatic vitals done in clinic were within normal llimits. He has symptoms daily or every other day will request for holter to correlate his symptoms with arrhythmias. - Will request for ECHO to evaluate for structural heart disease - Will request for carotid doppler in view of PAD to evaluate for obstructive carotid disease. Osteomyelitis 07/18/2022 Upper GI bleed 07/14/2022 Assessment & Plan (07/17/2022 3:09 PM EDT): Presented after a syncopal event with acute drop in H/H and melena. H/H in the ED was 5.7/17.7 10.7/33.4 on 07/13. Status posttransfusion 3 units PRBC EGD today showed multiple gastric ulcers, 2 of which were noted to be deep. No stigmata of recent bleeding. He has been on ASA and Plavix longstanding (relating to 2 cardiac stents) and reported recent usage of ibuprofen due to foot pain H/H stable over the last 24 hours. He had a transient bout of lightheadedness earlier but no other concerns for bleeding -- Continue to hold anticoagulants and NSAIDs --Spoke with cardiology. He may remain off platelet inhibitors until gastric ulcers have healed, then should start back ASA 81 mg daily. 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 -- Continue Protonix twice daily -- Continue regular diet -- Following H/H Diabetic foot infection 07/12/2022 Assessment & Plan (07/17/2022 3:15 PM EDT): Admitted here 07/12-07/14. Discharged on oral Bactrim. Wound cultures from 07/05 and 07/12 demonstrating MSSA. He is also demonstrating rare bacillus species on cultures from 07/12 that is probably a contaminant He continues to have pain and swelling of the 4th toe and redness and bogginess of the plantar forefoot along the proximal phalanges. This is concerning for deeper infection, especially given his pain complaints --MRI right foot was non-diagnostic due to pain and patient being unable to complete the study --We try again to complete MRI by premedicating with IV hydromorphone beforehand --Broaden antibiotics to piperacillin/tazobactam. Stop Bactrim --Repeat ESR Assessment & Plan (07/13/2022 3:47 PM EDT): He presented with worsening cellulitis despite treatment on amoxicillin/IM ceftriaxone. Superficial culture has grown MSSA, but not responsive to appropriate outpatient antibiotic therapy thus far. 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 Was started on Vanco and zosyn on admission with improvement in his symptoms. Has known peripheral arterial disease and is planned for vascular surgery evaluation for the RLE at [facility]. -cont broad spectrum vanc, zosyn for another 24 hrs before considering conversion to Po abx. Peripheral arterial disease 07/12/2022 Assessment & Plan (09/28/2022 7:17 AM EDT): Continue follow-up with vascular surgery. Continue guideline directed medical therapy. He gets regular blood work with his PCP. We will need to get records from his PCP. Assessment & Plan (07/12/2022 7:39 PM EDT): Followed by [facility] vascular surgery. Planned for follow up in July for possible angioplasty. Malignant neoplasm of prostate 02/20/2022 Microalbuminuria 01/11/2019 Essential hypertension 01/11/2019 Assessment & Plan (06/28/2024 9:51 AM EDT): Patient is currently managed on amlodipine. His blood pressure is well- controlled. No changes to management at this time. Plan: Continue amlodipine Follow-up in 1 year Assessment & Plan (09/28/2022 7:16 AM EDT): Blood pressure is controlled. Continue same management. Assessment & Plan (07/17/2022 3:15 PM EDT): BP well controlled at present --- Continue amlodipine -- Watch for any recurrent symptoms of lightheadedness Assessment & Plan (07/12/2022 7:38 PM EDT): Continue home antihypertensives. Will see if his can bring in his home olmesartan, as it is not on formulary. Neuropathy 01/11/2019 Coronary arteriosclerosis 01/11/2019 Assessment & Plan (06/28/2024 9:52 AM EDT): Status post stenting in 2015 in 2017. Patient reports occasional chest twinges and dyspnea with activity along with fatigue. Will order a repeat echo and stress test for routine monitoring. Patient states his symptoms have been stable. Will have patient follow-up in 1 year or sooner if necessary. Patient is unable to walk on a treadmill due to difficulty walking long distances. Plan: Continue aspirin Echo and nuclear stress test ordered Follow-up in 1 year or sooner if necessary Dyslipidemia 01/11/2019 Assessment & Plan (06/28/2024 9:53 AM EDT): Patient is managed on atorvastatin. Patient gets his labs drawn by his PCP. His cholesterol is 144, triglycerides 30, HDL 93, and LDL 43. Will continue current management. Plan: Continue atorvastatin Follow-up in 1 year Assessment & Plan (09/28/2022 7:18 AM EDT): He gets regular blood work from his PCP. Will need to get records from his PCP. Type 1 diabetes mellitus with complication Assessment & Plan (07/14/2022 9:26 PM EDT): Continue insulin pump. Assessment & Plan (07/13/2022 3:48 PM EDT): Patient has an insulin pump and continuous glucose monitor. He prefers to manage his own sugars. -use his home insulin pump but will intermittently check fingersticks with our equipment. Resolved Problems Problem Noted Date Diagnosed Date Resolved Date Syncope 07/14/2022 07/18/2022 Encounters Date Type Department Care Team Description 08/18/2024 7:58 AM EDT - 08/18/2024 11:59 PM EDT Hospital Encounter Echo Lab [address] [place] [address] Rachel Garcia DNP Discharge Disposition: Home or Self Care 06/28/2024 Procedure Pass Echo Lab [address] [place] [address] from Last 3 Months Immunizations Immunization Administration Dates Next Due Tdap 06/23/2018 Family History Medical History Relation Comments Cancer Mother Relation Status Comments Mother Social History Tobacco Use Types Packs/Day Years Used Date Smoking Tobacco: Every Day Smokeless Tobacco: Never Tobacco Cessation:Ready to Q uit: Not Asked; Counseling Given: Not Answered Alcohol Use Standard Drinks/Week Comments Yes 5 [...] Orientation Asexual 02/24/2023 9: 32 AM EST Last Filed Vital Signs Vital Sign Reading Time Taken Comments Blood Pressure 132/72 08/18/2024 7:59 AM EDT Pulse 83 06/28/2024 9:29 AM EDT Temperature 37.6 C (99.7 F) 07/18/2022 3:21 PM EDT Respiratory Rate 16 07/18/2022 3:21 PM EDT Oxygen Saturation 99% 06/28/2024 9:29 AM EDT Inhaled Oxygen Concentration - - Weight 68.6 kg (151 lb 3.8 oz) 08/18/2024 7:59 A M EDT Height 172.7 cm (5' 7.99 ) 08/18/2024 7:59 AM ED T Body Mass Index 23 08/18/2024 7:59 AM EDT Plan of Treatment Upcoming Encounters Date Type Department Care Team (Late st Contact Info) Description 06/28/2025 9:20 AM EDT Office Visit [facility] [address] [place] [address] 3rd Floor, [address] [place] [address] Adolfo Matthews MD [address] [place] [address], [address] [place] [phone] [email or web address] Health Maintenance Due Date Last Done Comments HEMOGLOBIN A1C 1956 TSH LEVEL 1956 DEPRESSION SCREENING 1968 SMOKING Hx and SMOKELESS TOBACCO SCREENING 1969 HEPATITIS C SCREENING 1974 PNEUMOCOCCAL VACCINES (50+ years) (1 of 2 - PCV) 06/26/1975 ZOSTER VACCINES (1 of 2) 06/26/1975 COLOGUARD 2001 COLONOSCOPY 2001 COLORECTAL CANCER SCREENING 2001 FIT TEST 2001 FOBT 2001 SIGMOIDOSCOPY 2001 VIRTUAL COLONOSCOPY 2001 RSV VACCINE (1 - Risk 60-74 years 1-dose series) 2016 DIABETIC EYE EXAM 01/11/2019 ABDOMINAL AORTIC ANEURYSM (AAA) SCREENING 2021 CREATININE LEVEL 07/19/2023 07/18/2022, , 07/15/2022, Additional history exists POTASSIUM LEVEL 07/19/2023 07/18/2022, 06/24, 07/15/2022, Additional history exists INFLUENZA VACCINE (#1) 2024 COVID-19 VACCINE ( season) 2024 BLOOD PRESSURE 12/29/2024 06/28/2024 Adult Td,Tdap Booster 06/23/2028 06/23/2018 HEPATITIS A VACCINES Aged Out No long er eligible based on patient's age to complete this topic HIB VACCINES Aged Out No longer eligi ble based on patient's age to complete this topic MENINGOCOCCAL VACCINES (ACWY) Aged Out No longer eligible based on patient's age to complete this topic MENINGOCOCCAL VACCINES (B) Aged Out N o longer eligible based on patient's age to complete this topic Medical Devices Not on file Procedures Procedure Name Priority Date/Time Associated Diagnosis Comments TTE COMPREHENSIVE Routine 08/18/2024 9:0 0 AM EDT Dyspnea on exertion BASIC METABOLIC PANEL Routine 07/18/2022 5:23 AM EDT from Last 3 Months or Most Recently Relevant to Health Maintenance Results * (ABNORMAL) TTE COMPREHENSIVE (08/18/2024 9:00 AM EDT) Body Surface Area 1.81 m2 Height 173 cm Weight 69 kg Interventricular Septum Thickness 8 6 - 11 mm Left Ventricle Internal Diameter End Diastole 42 42 - 58 mm Left Ventricle Internal Diameter End Systole 25 <40 mm Left Ventricular Outflow Tract Diameter 20.0 mm Left Ventricular Posterior Wall Thickness 9 6 - 11 mm Left Ventricle Ea Lateral Wave Speed 11.6 cm/s Left Ventricle Ea Septal Wave Speed 9.5 cm/s Ejection Fraction 65 50 - 75 Percent Left Atrium Dimension Anterior-Posterior 30 15 - 40 mm Aortic Valve Mean Gradient 3 mmHg Aortic Valve Time Velocity Integral 283.0 mm Aortic Valve Peak Velocity 1.2 m/s Aortic Valve Peak Gradient 6 mmHg Aortic Arch Diameter 23 mm Aortic Sinus Diameter 32 <40 mm Ascending Aorta Diameter 30 <36 mm Inferior Vena Cava Diameter 13 <21 mm Mitral Valve Deceleration Time 289 ms Left Ventricle A Wave Speed 86.6 cm/s Left Ventricle E Wave Speed 87.3 cm/s Mitral Valve Mean Gradient 1 mmHg Mitral Valve Peak Gradient 3 mmHg Mitral Valve Area Continuity Equation 2.80 cm2 Right Ventricle Basal Diameter 35 25 - 41 mm Raw LV EF% 65 % MV E/E' Tissue Velocity Lateral 7.53 Relative Wall Thickness 0.43 0.22 - 0.42 Left Ventricle indexed to BSA 60.7 g/m2 MV E/A ratio 1.0 MV E/e' septal 9.19 Left Ventricle E/e' Average 8.4 Aortic Valve Prosthetic Peak Gradient 6 mmHg Aortic Valve Sinus Index by BSA 18 mm/m2 Aorta Sinus Index by Height 1.85 cm/m Aorta Sinus CSA index by Height 4.65 cm2/m Ascending Aorta Index 17(A) mm/m2 Asc Aorta CSA Index by Height 4.08 cm2/m Mitral Valve Prosthetic Peak Gradient 3 mmHg Mitral Valve Prosthetic Mean Gradient 1 mmHg Ascending Aorta Index 17 mm Aortic Sinus Index 18 mm Ascending Aorta Diameter 17 mm Aortic Valve Sinus Index 1 18 20 - 32 mm AO ASC DIAM BSA INDEX 16.57 Echo E/Ea 9.19 Aortic Valve Prosthetic Mean Gradient 3 mmHg Left Atrial Volume Index 27 16 - 34 mL/m2 Right Ventricle TAPSE 22 >=17 mm Right Ventricle Pulse Doppler S Wave 15.0 >=9.5 cm/s Left Atrial Volume 48 mL Left Atrial Volume Index by Height 28 mL/m Right Atrium Area 12 cm2 Right Atrium Area index 7 cm2/m2 Right Atrium Pressure Estimated 3 mmHg Anatomical Region Laterality Modality Heart Ultrasound Narrative 08/18/2024 9:33 AM EDT Images from the original result were not included. Normal LV size and function EF 65%. Normal RV size and function. Normal diastolic function. Normal valve function function. No clear cause for shortness of breath could be found. Compared to study from September 2022,No change. Left Ventricle The left ventricle is normal in size. The LV internal diameter is 42 mm at end diastole, and 25 mm at end systole. There is normal wall thickness. The interventricular septal thickness is 8 mm. The LV posterior wall thickness is 9 mm. There is normal left ventricular systolic function. The LV ejection fraction is 65% (visually estimated). Average global longitudinal strain (GLS) is (normal), as measured on [employer] software platform. LV diastolic function appears within normal limits for age. Right Ventricle The right ventricle is normal in size. TAPSE is 22 mm (normal: >= 17 mm). RV S' wave is 15.0 cm/s (normal: >= 9.5 cm/s). Left Atrium The left atrium is mildly dilated. Right Atrium The right atrium is normal in size. The IVC is normal in size with normal inspiratory collapse. Mitral Valve There is mitral valve thickening. There is mitral annular calcification. There is no mitral stenosis. There is trace to mild mitral regurgitation. Tricuspid Valve The tricuspid valve appears normal. There is no tricuspid stenosis. There is trace tricuspid regurgitation. Aortic Valve The aortic valve is tricuspid. There is leaflet thickening (aortic sclerosis). There is no aortic stenosis. There is no aortic regurgitation. The aortic sinuses are normal in size. The ascending aorta is normal in size. Pulmonic Valve The pulmonic valve appears normal. There is no pulmonic stenosis. There is trace pulmonic regurgitation. Pericardium There is no pericardial effusion. General Findings The image quality was good (2). Strain performed. Technique(s) used in the evaluation: Multiplane, Color flow Doppler, Spectral Doppler and Epiaortic scan. Comparison Findings Compared to prior study on 10/05/2022, IAS/IVS The interatrial septum appears normal. The interventricular septum appears normal. us Rachel Garcia DNP CV ECHO ORDERABLES Final Result * (ABNORMAL) Basic metabolic panel (07/18/2022 5:23 AM EDT) SODIUM 137 133 - 146 mmol/L [facility] CHLORIDE 102 96 - 108 mmol/L [facility] POTASSIUM 4.5 3.3 - 5.1 mmol/L [facility] CO2 26 21 - 35 mmol/L [facility] BUN 19 6 - 19 mg/dL [facility] CREATININE 1.20 0.5 - 1.5 mg/dL [facility] GLUCOSE 146(H) 70 - 99 mg/dL [facility] CALCIUM 8.9 8.4 - 10.3 mg/dL [facility] EGFR 67 >59 mL/min/1.7 3m2 [facility] Comment:Estimated glomerular filtration rate calculated using the CKD-EPI refit equation. ANION GAP 14 10 - 20 mmol/L [facility] Blood 07/18/2022 5:23 AM EDT 07/18/2022 5:28 AM EDT Anaya Leal MD LAB BLOOD ORDERABLES Final Resu lt [address] [address] from Last 3 Months or Most Recently Relevant to Health Maintenance Insurance [place]UE REPLACEMENT MEDICARE PPO BLUE REPLACEMENT MEDICARE PPO BLUE REPLACEMENT MEDICARE PPO BLUE REPLACEMENT [facility] MEDICARE PPO BLUE REPLAC[place] [address] MEDICARE PPO BLUE REPLACEMENT Advance Directives For more information, please contact: [phone] (9AM - 5PM [facility], Thursday-Thursday) Documents on File Type Date Recorded Patient Cigarette Tester Expl anation MOLST 07/15/2022 11:46 AM molst Healthcare Proxy 07/15/2022 11:46 AM healt hcare proxy * Full Code (Latest Code Status on File) Date Activated Date Inactivated Comments 07/14/2022 10:12 PM Question Answer Comments Code Status Confirmed With: Patient * Full Code Date Activated Date Inactivated Comments 07/12/2022 7:26 PM 07/14/2022 10:12 PM Question Answer Comments Code Status Confirmed With: Patient Care Teams Certification Engineer Relationship Specialty Start Date End Date Mayelin Kirkland NP [address] [place] [id number] [email or web address] PCP - General Family Medicine 06/05/21 Katy Dumont MD [email or web address] Medicine 01/11/19 Additional Source Comments The information contained in this document represents components of the legal health record. It is not the complete legal health record.[facility]
--- OUTSIDE RECORDS SUMMARY | 2024-11-03 17:05 | XMS_ITS | Encounter Summary ---
Author Organization [facility] Address [address] [place] [address] Phone Care Team Providers Care Varnish Blender Name Role Phone Percy Paige Primary Care Provider [phone] Katy Dumont MD Unavailable + Mayelin Kirkland NP Primary Care Provid er Reason for Visit * Reason Comments Medication Refill Encounter Details Date Type Department Care Team (Late st Contact Info) Description 07/13/2018 Refill [facility] at [address] [address] Kierra Guzman PA-C [address] [place] [address] [address] [place] [address] [email or web address] Medication Refill Social History Tobacco Use Types Packs/Day Years Used Date Smoking Tobacco: Never Assessed Sex and Gender Information Value Date Recorded Sex Assigned at Male 02/24/2023 9:32 AM EST Legal Sex Male 9:53 PM EDT Gender Identity Male 02/24/2023 9:32 AM EST Sexual Orientation Asexual 02/24/2023 9: 32 AM EST documented as of this encounter Plan of Treatment Upcoming Encounters Date Type Department Care Team (Late st Contact Info) Description 06/28/2025 9:20 AM EDT Office Visit [facility] [address] [place] [address] 3rd Floor, [address] [place] [id number] Adolfo Matthews MD [address] [place] [address], [address] [place] [address] [place] [address] [email or web address] documented as of this encounter Visit Diagnoses Not on filedocumented in this encounter Additional Health Concerns Infection Onset Date Last Indicated Resolved Time MRSA Comment:Infection Loaded by the Load Infection Utility 03/26/2014 03/26/2014 04/09/2022 1:[address] documented as of this encounter Care Teams Varnish Blender Relationship Specialty Start Date End Date Percy Paige PA [address] [place] [address] [email or web address] PCP - General Unknown Provider Specialty 01/11/19 06/04/21 Mayelin Kirkland NP [address] [place] [phone] [email or web address] PCP - General Family Medicine 06/05/21 Katy Dumont MD [address] [place] [phone] [email or web address] 01/11/19 documented as of this encounter Additional Source Comments The information contained in this document represents components of the legal health record. It is not the complete legal health record.[facility]
--- OUTSIDE RECORDS SUMMARY | 2024-11-03 17:05 | XMS_ITS | Encounter Summary ---
Author Organization [facility] Address [address] [address] Phone Care Team Providers Care Dental Office Coordinator Name Role Phone Katy Dumont MD Unavailable + Mayelin Kirkland NP Primary Care Provid er Encounter Details Date Type Department Care Team (Late st Contact Info) Description 07/15/2022 Procedure Pass [facility] Endoscopy Admitting Dept Virtual Department [address] [place] [address] Social History Tobacco Use Types Packs/Day Years [...] Description 06/28/2025 9:20 AM EDT Office Visit [facility] [address] [place] [address] 3rd Floor, [address] [place] [address] Adolfo Matthews MD [address] [place] [address], [address] [address] [email or web address] documented as of this encounter Visit Diagnoses Not on filedocumented in this encounter Care Teams Dental Office Coordinator Relationship Specialty Start Date End Date Mayelin Kirkland NP [address] [place] [phone] [email or web address] PCP - General Family Medicine 06/05/21 Katy Dumont MD [email or web address] 01/11/19 documented as of this encounter Additional Source Comments The information contained in this document represents components of the legal health record. It is not the complete legal health record.[facility]
--- OUTSIDE RECORDS SUMMARY | 2024-11-03 17:05 | XMS_ITS | Encounter Summary ---
Author Organization [facility] Address [address] [address] Phone Care Team Providers Care Green Chain Operator Name Role Phone Katy Dumont MD Unavailable + Mayelin Kirkland NP Primary Care Provid er Encounter Details Date Type Department Care Team (Late st Contact Info) Description 07/17/2022 Procedure Pass [facility], [address] [address] Social History Tobacco Use Types Packs/Day Years [...] Description 06/28/2025 9:20 AM EDT Office Visit [facility] [address] [place] [address] 3rd Floor, [address] [place] [address] Adolfo Matthews MD [address] [place] [address], [address] [address] [email or web address] documented as of this encounter Visit Diagnoses Not on filedocumented in this encounter Care Teams Green Chain Operator Relationship Specialty Start Date End Date Mayelin Kirkland NP [address] [place] [phone] [email or web address] PCP - General Family Medicine 06/05/21 Katy Dumont MD [email or web address] 01/11/19 documented as of this encounter Additional Source Comments The information contained in this document represents components of the legal health record. It is not the complete legal health record.[facility]
--- OUTSIDE RECORDS SUMMARY | 2024-11-03 17:05 | XMS_ITS | Encounter Summary ---
Author Organization [facility] Address [address] [address] Phone Care Team Providers Care [employer] [employer]er Name Role Phone Katy Dumont MD Unavailable + Mayelin Kirkland NP Primary Care Provid er Encounter Details Date Type Department Care Team (Late st Contact Info) Description 07/16/2022 Procedure Pass [facility], [address] [address] Social History Tobacco Use Types Packs/Day Years [...] Description 06/28/2025 9:20 AM EDT Office Visit [facility] [address] [place] [address] 3rd Floor, [address] [place] [address] Adolfo Matthews MD [address] [place] [address], [address] [address] [email or web address] documented as of this encounter Visit Diagnoses Not on filedocumented in this encounter Care Teams [employer] Relationship Specialty Start Date End Date Mayelin Kirkland NP [address] [place] [id number] [email or web address] PCP - General Family Medicine 06/05/21 Katy Dumont MD [email or web address] [facility] 01/11/19 documented as of this encounter Additional Source Comments The information contained in this document represents components of the legal health record. It is not the complete legal health record.[facility]
[2024-11-03 19:34] LABS: PTT Heparin Drip 88.5 SEC (53-77.9)
[2024-11-03 21:20] LABS: Glucose, Whole Blood 206 mg/dL (60-115)
[2024-11-04 01:57] LABS: PTT Heparin Drip 57.4 SEC (53-77.9)
[2024-11-04 03:38] VITALS: BP 120/56; PULSE 68; RESP 16; TEMP 36.6; O2SAT 97
[2024-11-04 06:42] LABS: Hematocrit 41.3 % (42.0-52.0); Hemoglobin 14.2 g/dl (14.0-18.0); Mean Corpuscular HGB Conc 34.4 g/dl (31.0-36.0); Mean Corpuscular Hemoglobin 32.3 pg (27.0-33.0); Mean Corpuscular Volume 93.9 fL (80.0-98.0); NRBC Abs Auto 0.000 X10*3/uL (0.0-0.012); NRBC Pct Auto 0.0 /100WBC (0.0-0.2); Platelet Count 239 X10*3/uL (160-400); Red Blood Count 4.40 X10*6/uL (4.60-5.80); White Blood Count 6.3 X10*3/uL (4.8-10.8)
[2024-11-04 06:56] LABS: Anion Gap 12 (12-20); Blood Urea Nitrogen 17 mg/dL (9-16); Calcium 9.6 mg/dL (8.4-10.2); Carbon Dioxide 28 mmol/L (22-29); Chloride 104 mmol/L (96-108); Creatinine Clr Calc Pharmacy 65.4; Estimated Glomerular Filt Rate > 60; Potassium 4.7 mmol/L (3.3-5.1); Sodium 139 mmol/L (135-145)
[2024-11-04 07:08] VITALS: BP 143/66; PULSE 59; RESP 16; TEMP 36.4; O2SAT 98
[2024-11-04 07:18] LABS: INTERNATIONAL NORM RATIO 0.9 (0.9-1.1); Prothrombin Time 10.5 SEC (10.9-12.4)
[2024-11-04 07:22] LABS: Glucose, Whole Blood 122 mg/dL (60-115)
[2024-11-04 08:59] LABS: PTT Heparin Drip 51.0 SEC (53-77.9)
--- NOTE | 2024-11-04 09:15 | MHC.CM.PN ---
IMM given 11/04. Pt self-care, lives at home with his /HCP who will transport him home at discharge. HCP copy requested. PCP: Mayelin SANTIAGO
--- NOTE | 2024-11-04 10:15 | PM.DS ---
DS: Providers Provider Date of Service: 11/04/24 Date of admission: 11/03/24 13:57 Date of discharge: 11/04/24 Primary care physician: JACK Pérez Consults: 11/03/24 14:29 Consult to Cardiology Routine Consulting Provider: [facility] Reason for consultation: chest pain Has provider been notified: No DS: Diagnosis Discharge Diagnosis (1) Chest pain: Status: Acute DS: Summary Hospital Course Hospital Course: from initial hpi: 61-year-old male with history of coronary artery disease, type 1 diabetes, peripheral vascular disease who presents to the emergency department with chest pain. Patient reports central chest pressure intermittent over the past 10 days. Over the past 3 days has become more constant in nature. There is no radiation. There is no associated symptoms specifically no shortness of breath, dizziness, diaphoresis, nausea or vomiting. The pain is not worse with activity. He received a dose of nitro in the emergency department which possibly reduce the pain a little bit according to the patient. ekg was non-ischemic. troponin was checked and initially was 65, on repeat 60. Given underlying coronary artery disease, concern for unstable angina, was started on heparin drip and will be admitted to the hospital for further management. hospital course: Patient presented with unstable angina was treated with IV heparin, Plavix, echo showed normal EF with some basal hypokinesis was seen by Cardiology recommended transfer to [facility] for cardiac catheterization. For type 1 diabetes was continued on insulin pump. For hypertension continued on Norvasc. For hypothyroid continue on levothyroxine. Time Attestation Discharge Coordination Time (in mins): 33 Quality: Safe Use of Opioids Does Pt have an Active Cancer Diagnosis on the Problem List?: No Quality: Stroke Does the patient have a stroke diagnosis?: No Physical Exam Exam: Exam: Patient looks well no distress comfortable in the stretcher Vital Signs: Vital Signs: Last Vital Signs Temp 97.6 F 11/04/24 07:08 Pulse 59 11/04/24 07:08 Resp 16 11/04/24 07:08 BP 143/66 H 11/04/24 07:08 Pulse Ox 98 11/04/24 07:08 O2 Del Method Room Air 11/04/24 07:08 BMI result Body Mass Index 22.2 Const: General: cooperative Orientation/consciousness: patient oriented x3 HEENT: Head: Yes normal to inspection General nose exam: Normal external nose present Face and sinus: Yes normal facial exam Mouth: Normal oral and palatal mucosa present Neck: Neck: Yes normal visual inspection Resp: Effort & Inspection: normal respiratory effort Auscultation: clear to auscultation bilaterally Cardio: Jugular venous distension: no JVD Rate: regular rate Rhythm: regular rhythm GI: Inspection: Yes normal to inspection Skin: General skin exam: no rashes or lesions noted Neuro: General: patient oriented x3 Extrem: General: Yes normal to inspection DS: Data Data Completed and Pending Labs on day of discharge: Laboratory Results - last 24 hr 11/03/24 11/03/24 11/03/24 09:58 13:17 13:18 WBC RBC Hgb Hct MCV MCH MCHC RDW Plt Count MPV Absolute Nucleated RBC Nucleated RBC % (auto) PT 9.9 L INR 0.9 aPTT Heparin Protocol 31.1 L Sodium 138 Potassium 4.6 Chloride 103 Carbon Dioxide 27 Anion Gap 13 BUN 20 H Creatinine 1.24 Estim Creat Clear Calc 53.0 Estimated GFR 58 POC Glucose Random Glucose 208 H Calcium 9.4 Total Bilirubin 0.4 AST 27 ALT 24 Alkaline Phosphatase 73 Troponin I High Sens 65.2 H 60.4 H Total Protein 7.1 Albumin 4.2 11/03/24 11/03/24 11/04/24 19:12 21:15 01:42 WBC RBC Hgb Hct MCV MCH MCHC RDW Plt Count MPV Absolute Nucleated RBC Nucleated RBC % (auto) PT INR aPTT Heparin Protocol 88.5 H D 57.4 D Sodium Potassium Chloride Carbon Dioxide Anion Gap BUN Creatinine Estim Creat Clear Calc Estimated GFR POC Glucose 206 H Random Glucose Calcium Total Bilirubin AST ALT Alkaline Phosphatase Troponin I High Sens Total Protein Albumin 11/04/24 11/04/24 11/04/24 06:07 07:06 08:43 WBC 6.3 RBC 4.40 L Hgb 14.2 Hct 41.3 L MCV 93.9 MCH 32.3 MCHC 34.4 RDW 12.3 Plt Count 239 MPV 9.8 Absolute Nucleated RBC 0.000 Nucleated RBC % (auto) 0.0 PT 10.5 L INR 0.9 aPTT Heparin Protocol 51.0 L Sodium 139 Potassium 4.7 Chloride 104 Carbon Dioxide 28 Anion Gap 12 BUN 17 H Creatinine 1.01 Estim Creat Clear Calc 65.4 Estimated GFR > 60 POC Glucose 122 H Random Glucose 144 H Calcium 9.6 Total Bilirubin AST ALT Alkaline Phosphatase Troponin I High Sens Total Protein Albumin Discharge Plan Discharge Anticipated Discharge Date/Time: 11/04/24 10:08 Patient Disposition: Xfer Acute Care Hospital Discharge Diagnosis: acs Referrals: Mayelin Kirkland, ENOLOGIST [Primary Care Provider, [facility]] - 1 Week Discharge Medications: New heparin(porcine) in 0.45% NaCl 25,000 unit/250 mL Parenteral Solution 25,000 unit continuous IV infusion .Q0M Qty: 0 0RF heparin (porcine) 5,000 unit/mL Solution 2,600 unit IVPUSH PROTOCOL BOLUS PRN (Reason: 40 Unit/Kg - Heparin Protocol) Qty: 0 0RF heparin (porcine) 5,000 unit/mL Solution 5,300 unit IVPUSH PROTOCOL BOLUS PRN (Reason: 80 Unit/Kg - Heparin Protocol) Qty: 0 0RF Continued atorvastatin 80 mg tablet 80 mg PO DAILY clopidogrel 75 mg tablet 75 mg PO DAILY amlodipine 10 mg tablet 10 mg PO DAILY levothyroxine [Synthroid] 125 mcg tablet 125 mcg PO BEDTIME gabapentin 300 mg capsule 300 mg PO BID gabapentin 300 mg capsule 300 mg PO DAILY PRN (Reason: Pain) (DME) Dexcom G6 Transmitter Device MISCELLANEOUS insulin degludec [Tresiba FlexTouch U-100] 100 unit/mL (3 mL) insulin pen See Rx Instructions .ROUTE .COMPLEX PRN (Reason: when pump fails) Rx Instructions: INJECT 15 UNITS SUBCUTANEOUSLY DAILY WHEN OFF PUMP, RESTART PUMP 23 HOURS LATER (DME) Omnipod 5 G6-G7 Pods (Gen 5) Cartridge SUBCUT Q OTHER DAY insulin lispro [Humalog U-100 Insulin] 100 unit/mL Solution 0 - 67 unit SUBCUT DAILY Rx Instructions: INJECT UP TO 67 UNITS SUBCUTANEOUSLY DAILY VIA PUMP Omni pod 5 Gen. Discharge Orders: Discharge Order (Routine); Ordered 11/04/24 Ordered By: Artie Durham Diet: Advance to usual diet Activity on Discharge: As tolerated Stand Alone Forms: Patient Portal Discharge page Print Language: Swedish Care Plan Goals: work up acs Health Concerns: acs Plan of Treatment: transfer to [facility] Assessment: see above
--- NOTE | 2024-11-04 10:18 | PM.CNCAR ---
History of Present Illness History of Present Illness Date of Service: 11/04/24 Requesting physician: Artie Durham Consult reason: other (Acute coronary syndrome) Chief complaint: chest pain Narrative: I was consulted to see Shan in cardiology consultation today because of chest pain with minimally elevated troponin. 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 He had stenting to the RCA in 2014 for acute coronary syndrome at which time his symptoms were chest pressure, followed by in 2016 had recurrent chest pressure underwent stenting of his OM with drug-eluting stent. Following in 2022 at stenting off his iliac/femoral artery for nonhealing ulcer in his right foot. He has been doing well and overall generally active although he can not exercise much due to significant neuropathy and discomfort in his legs related to his prior work. Patient has history of hypertension, hyperlipidemia, insulin-requiring diabetes. Patient came to the hospital said he has not been feeling well for about a month and about a week ago he started having the similar chest pressure and not a lower retrosternal area which is constantly present. Chest pressure is mi but gradually got worse and he eventually came to the emergency room. In the emergency room his troponins were minimally elevated in his 60s and he was admitted for further management and started on IV heparin drip given his prior cardiac history. He was given sublingual nitroglycerin but he does not think that made much of a difference. He still has mild chest pressure. Blood pressure is slightly elevated. He said this is probably related to being in the hospital and stressed out. He denies any palpitations. No heart failure symptoms. He unfortunately continues to smoke Review of Systems Constitutional: Constitutional: Reports no additional constitutional complaints Eyes: Eyes: Reports no additional eye complaints Cardiovascular: Cardiovascular: Reports chest pain at rest, Denies rapid heart rate, Denies lightheadedness, Denies Loss of Consciousness and Denies dyspnea Respiratory: Respiratory: Denies no additional respiratory complaints and Denies dyspnea Gastrointestinal: Gastrointestinal: Reports no additional gastrointestinal complaints Genitourinary: Genitourinary: Reports no additional male genitourinary complaints Musculoskeletal: Musculoskeletal: Reports no additional musculoskeletal complaints Integumentary/Breasts: Skin/Breast: Reports system reviewed and no additional complaints, except as docu Neurologic: Reports system reviewed and no additional complaints, except as documented Psychiatric: Psychiatric: Reports no additional psychiatric complaints Endocrine: Endocrine: Reports no additional endocrine complaints PMFSH Past Medical History Medical History Tobacco dependence Hypothyroid Type 1 diabetes PVD (peripheral vascular disease) CAD (coronary artery disease) Social History Social History Household Members: Spouse Housing: House Do you presently have visiting nurse or other home services: No Patient Tobacco Use Status: Current everyday Tobacco user Tobacco use type: Cigarette Cigarettes Per Day: 1 service: No Meds Allergies Allergy/AdvReac Type Severity Reaction Status Date / Time codeine Allergy Unknown Unknown Verified 11/03/24 09:46 Active Medications: Current Medications Acetaminophen (Acetaminophen 325 Mg Tablet) 650 mg PO Q6H PRN PRN Reason: Pain, Mild 1-3,fever,headache Amlodipine Besylate (Amlodipine Besylate 10 Mg Tablet) 10 mg PO DAILY LORNE; Protocol Last Admin: 11/04/24 09:18 Dose: 10 mg Atorvastatin Calcium (Atorvastatin Calcium 80 Mg Tablet) 80 mg PO DAILY LORNE Last Admin: 11/04/24 09:18 Dose: 80 mg Calcium Carbonate (Calcium Carbonate 750 Mg Tab.Chew) 750 mg PO Q4H PRN PRN Reason: Heartburn Clopidogrel Bisulfate (Clopidogrel Bisulfate 75 Mg Tablet) 75 mg PO DAILY LORNE Last Admin: 11/04/24 09:18 Dose: 75 mg Dextrose (Dextrose 50 % 25 Gm/50 Ml Syringe) 25 gm IVPUSH Q15M PRN; Protocol PRN Reason: per Hypoglycemia Standing Ord. Gabapentin (Gabapentin 300 Mg Capsule) 300 mg PO BID LORNE Last Admin: 11/04/24 09:18 Dose: 300 mg Glucose (Glucose Gel 15 Gm Gel..Gram.) 15 gm PO Q15M PRN; Protocol PRN Reason: per Hypoglycemia Standing Ord. Heparin Sodium (Porcine) (Heparin Sodium,Porcine 5,000 Unit/Ml Vial) 2,600 unit 40 unit/kg (2600 unit) IVPUSH PROTOCOL BOLUS PRN; Protocol PRN Reason: 40 unit/kg - Heparin Protocol Last Admin: 11/04/24 09:24 Dose: 2,600 unit Heparin Sodium (Porcine) (Heparin Sodium,Porcine 5,000 Unit/Ml Vial) 5,300 unit 80 unit/kg (5300 unit) IVPUSH PROTOCOL BOLUS PRN; Protocol PRN Reason: 80 unit/kg - Heparin Protocol Heparin Sodium/Sodium Chloride (Heparin Sodium,Porcine/1/2ns) 25,000 unit in 250 mls @ 0 mls/hr IVCONT .Q0M [facility]; Protocol Last Titration: 11/04/24 09:18 Dose: 12 units/kg/hr, 7.93 mls/hr Insulin Pump (Subcutaneous Insulin Pump) 1 each SUBCUT QIDACHS [facility]; Protocol Last Admin: 11/04/24 09:19 Dose: 1 each Levothyroxine Sodium (Levothyroxine Sodium 125 Mcg Tablet) 125 mcg PO BEDTIME [facility] Last Admin: 11/03/24 22:16 Dose: 125 mcg Magnesium Hydroxide (Milk Of Magnesia 30 Ml Oral.Susp) 30 ml PO DAILY PRN PRN Reason: Constipation Melatonin (Melatonin 3 Mg Tablet) 6 mg PO BEDTIME PRN PRN Reason: Insomnia Nitroglycerin (Nitroglycerin 0.4 Mg Tab.Subl) 0.4 mg SUBLINGUAL Q5MX3 PRN PRN Reason: Chest Pain Last Admin: 11/03/24 12:31 Dose: 0.4 mg Sodium Chloride (0.9 % Sodium Chloride Flush 3 Ml Syringe) [facility] Last Admin: 11/04/24 07:06 Dose: Not Given Home Medications ?Medication ?Instructions ?Recorded ?Confirmed ?Last Taken ?Type amlodipine 10 mg tablet 10 mg PO DAILY 11/03/24 11/03/24 11/03/24 History atorvastatin 80 mg tablet 80 mg PO DAILY 11/03/24 11/03/24 11/03/24 History blood-glucose transmitter (Dexcom 11/03/24 11/03/24 Unknown History G6 Transmitter device) clopidogrel 75 mg tablet 75 mg PO DAILY 11/03/24 11/03/24 11/03/24 History gabapentin 300 mg capsule 300 mg PO BID 11/03/24 11/03/24 11/03/24 History gabapentin 300 mg capsule 300 mg PO DAILY PRN Pain 11/03/24 11/03/24 Unknown History insulin degludec 100 unit/mL (3 See Rx Instructions .Route 11/03/24 11/03/24 11/03/24 History mL) subcutaneous pen (Tresiba .COMPLEX PRN when pump fails FlexTouch U-100 insulin) insulin lispro 100 unit/mL 0 - 67 unit subcut DAILY 11/03/24 11/03/24 11/03/24 History subcutaneous solution (Humalog U-100 Insulin) insulin pump cart,auto,BT,G6/7 11/03/24 11/03/24 Unknown History (Omnipod 5 G6-G7 Pods (Gen 5) subcutaneous cartridge) levothyroxine 125 mcg tablet 125 mcg PO BEDTIME 11/03/24 11/03/24 11/03/24 History (Synthroid) Physical Exam Vital Signs: Vital Signs: Last Vital Signs Temp 97.6 F 11/04/24 07:08 Pulse 59 11/04/24 07:08 Resp 16 11/04/24 07:08 BP 143/66 H 11/04/24 07:08 Pulse Ox 98 11/04/24 07:08 O2 Del Method Room Air 11/04/24 07:08 BMI result Body Mass Index 22.2 Const: General: cooperative, comfortable, no acute distress, well developed, alert and awake Nutritional Appearance: average body habitus and well nourished Orientation/consciousness: patient oriented x3 HEENT: Head: Yes normocephalic and Yes atraumatic Neck: Neck: Yes trachea midline, Yes supple and No no JVD Carotids: bruit on the right Resp: Effort & Inspection: normal respiratory effort Auscultation: clear to auscultation bilaterally Cardio: Jugular venous distension: no JVD Palpation: normal PMI Rate: regular rate Rhythm: regular rhythm Heart sounds: S1 normal heart sound present, S2 normal heart sound present, no click, no gallops, no murmurs and no rubs GI: Auscultation: normal bowel sounds Skin: General skin exam: no rashes or lesions noted Neuro: General: patient oriented x3 and no focal motor deficits Extrem: General: Yes no clubbing, cyanosis or edema Psych: Appearance: grossly normal Objective Labs and Meds 11/04/24 06:07 11/04/24 06:07 Lab results: Laboratory Results - last 24 hr 11/03/24 11/03/24 11/03/24 09:58 13:17 13:18 WBC RBC Hgb Hct MCV MCH MCHC RDW Plt Count MPV Absolute Nucleated RBC Nucleated RBC % (auto) PT 9.9 L INR 0.9 aPTT Heparin Protocol 31.1 L Sodium 138 Potassium 4.6 Chloride 103 Carbon Dioxide 27 Anion Gap 13 BUN 20 H Creatinine 1.24 Estim Creat Clear Calc 53.0 Estimated GFR 58 POC Glucose Random Glucose 208 H Calcium 9.4 Total Bilirubin 0.4 AST 27 ALT 24 Alkaline Phosphatase 73 Troponin I High Sens 65.2 H 60.4 H Total Protein 7.1 Albumin 4.2 11/03/24 11/03/24 11/04/24 19:12 21:15 01:42 WBC RBC Hgb Hct MCV MCH MCHC RDW Plt Count MPV Absolute Nucleated RBC Nucleated RBC % (auto) PT INR aPTT Heparin Protocol 88.5 H D 57.4 D Sodium Potassium Chloride Carbon Dioxide Anion Gap BUN Creatinine Estim Creat Clear Calc Estimated GFR POC Glucose 206 H Random Glucose Calcium Total Bilirubin AST ALT Alkaline Phosphatase Troponin I High Sens Total Protein Albumin 11/04/24 11/04/24 11/04/24 06:07 07:06 08:43 WBC 6.3 RBC 4.40 L Hgb 14.2 Hct 41.3 L MCV 93.9 MCH 32.3 MCHC 34.4 RDW 12.3 Plt Count 239 MPV 9.8 Absolute Nucleated RBC 0.000 Nucleated RBC % (auto) 0.0 PT 10.5 L INR 0.9 aPTT Heparin Protocol 51.0 L Sodium 139 Potassium 4.7 Chloride 104 Carbon Dioxide 28 Anion Gap 12 BUN 17 H Creatinine 1.01 Estim Creat Clear Calc 65.4 Estimated GFR > 60 POC Glucose 122 H Random Glucose 144 H Calcium 9.6 Total Bilirubin AST ALT Alkaline Phosphatase Troponin I High Sens Total Protein Albumin Imaging Radiologist's impression: Impressions Chest X-Ray 11/03/24 10:35 IMPRESSION: Small area of ill-defined opacity in the right lower lobe could represent early airspace disease in the appropriate clinical setting. Electronically signed by: Ron Coelho MD 11/03/2024 10:45 AM EDT Assessment and Plan (1) ACS (acute coronary syndrome): Status: Acute Plan Patient with symptoms similar to his prior acute coronary syndrome and angina but atypical because of the has been constantly present with minimal troponin elevation no significant EKG changes. However he is very high risk for progressive atherosclerotic disease given his prior significant vascular disease. I think he would most benefit from cardiac catheterization at this point time. I would hold his Plavix and continue aspirin IV heparin drip. Will start him on nitro paste at 1/2 inch q.6 hours. Discussed with his primary cardiology group about transferred to [facility] will arrange for cardiac catheterization for him. I discussed with [facility] hospitalist about management plan. I discussed with him about the need for cardiac catheterization including risks, benefits, alternatives. He understands in his agreeable to pursue the same. Continue aggressive risk factor modification. Target goal LDL should be less than 50 mg/dL given his repeated vascular and atherosclerotic events. Have strongly advised him to stop smoking. Continue aggressive diabetes management goal hemoglobin A1c less than 7%. Blood pressure is currently borderline elevated but probably related to stress. Management was discussed with him and the hospitalist team. Will sign of the case. Thank you for allowing me to partake in his care Procedures Date of Service Date of Service: 11/04/24
[2024-11-04] MEDS: Heparin Sodium,Porcine/1/2NS 25,000 UNIT/250 ML IV.SOLN 7.93 UNIT IVCONT (11:08)
[2024-11-04 11:15] VITALS: BP 123/63; PULSE 65; RESP 16; TEMP 36.4; O2SAT 95
[2024-11-04 11:20] LABS: Glucose, Whole Blood 139 mg/dL (60-115)
[2024-11-04] MEDS: Nitroglycerin 2 % Oint 1 GM Packet 0.5 INCH TRANSDERMA (14:04)
[2024-11-04 15:12] VITALS: BP 127/61; PULSE 62; RESP 16; TEMP 36.4; O2SAT 98
--- NOTE | 2024-11-04 15:58 | MHC.CM.PN ---
Pt will be transferring to [facility] for a cardiac cath.
[2024-11-04 16:14] LABS: Glucose, Whole Blood 187 mg/dL (60-115)
[2024-11-04 16:19] LABS: PTT Heparin Drip 79.7 SEC (53-77.9)
--- NOTE | 2024-11-04 18:22 | PC.NURSE ---
report given to [facility] RN M5 room 32 [id number]
== END 2024-11-04 18:44 | disposition short-term general hospital (02) | DRG 303 ==
LOC: HO.ED 13:02 → HO.EDOVER 14:07 → HO.IMC 19:29
PROVIDERS: Hospitalist; Admitting Provider Physician Assistant Medical; Emergency Provider Emergency Medicine; PCP Nurse Practitioner Family; Visit Provider Internal Medicine
DX: I25.110 Atherosclerotic heart disease of native coronary artery with unstable angina pectoris (principal); E03.9 Hypothyroidism, unspecified; E10.51 Type 1 diabetes mellitus with diabetic peripheral angiopathy without gangrene; F17.210 Nicotine dependence, cigarettes, uncomplicated; Z71.6 Tobacco abuse counseling; Z95.5 Presence of coronary angioplasty implant and graft; Z79.02 Long term (current) use of antithrombotics/antiplatelets; Z79.890 Hormone replacement therapy; Z79.899 Other long term (current) drug therapy
CPT/HCPCS: 36415; 71045; 80048; 80053; 82947; 84484; 85025; 85027; 85610; 85730; 93005; 93306; 99285; J1644; Q9957

== ENCOUNTER → 2024-11-03 09:35 | Outpatient (BNV) | payer MEDICARE, SELFPAY | PROVIDERS: Admitting Provider Physician Assistant Medical; Emergency Provider Emergency Medicine; PCP Nurse Practitioner Family; Visit Provider Internal Medicine Cardiovascular Disease | DX: I51.89 Other ill-defined heart diseases (principal); R07.9 Chest pain, unspecified; I49.1 Atrial premature depolarization; R94.31 Abnormal electrocardiogram [ECG] [EKG] | CPT/HCPCS: 93010; 93306 ==

== ENCOUNTER → 2024-11-03 10:35 | Outpatient (BNV) | payer OTHER, SELFPAY | PROVIDERS: PCP Nurse Practitioner Family; Visit Provider Radiology Body Imaging | DX: R91.8 Other nonspecific abnormal finding of lung field (principal) | CPT/HCPCS: 71045 ==

== ENCOUNTER → 2024-11-03 13:57 | Outpatient (BNV) | payer MEDICARE, SELFPAY | PROVIDERS: Admitting Provider Physician Assistant Medical; Emergency Provider Emergency Medicine; PCP Nurse Practitioner Family; Visit Provider Physician Assistant Medical | DX: R07.9 Chest pain, unspecified (principal) | CPT/HCPCS: 99223 ==

== ENCOUNTER → 2024-11-03 13:57 | Outpatient (BNV) | payer MEDICARE, SELFPAY | PROVIDERS: Admitting Provider Physician Assistant Medical; Emergency Provider Emergency Medicine; PCP Nurse Practitioner Family; Visit Provider Internal Medicine Cardiovascular Disease | DX: I24.9 Acute ischemic heart disease, unspecified (principal) | CPT/HCPCS: 99222 ==